=== PATIENT | male | born 1965 | race Caucasian/White ===

== ENCOUNTER 2017-03-02 16:49 | Observation (INO) | payer OTHER ==
[~2017-03-02] VITALS: Ht 203.2 cm; Wt 104.0 kg
[~2017-03-02 16:49] MED LIST: ABILIFY15 MG NG; ZOLOFT100 MG G-TUBE
[2017-03-02 17:35] LABS: HEMATOCRIT 48.6 % (38.0-50.0); MCH 30.4 PG (29.0-34.0); MCHC 33.1 G/DL (30.0-36.0); MCV 91.9 FL (86-99); MEAN PLAT.VOLUME 9.4 uM^3 (9.0-12.4); PLATELET COUNT 230 K/uL (156-360); RBC DIS.WIDTH-CV 12.7 % (11.8-14.6); RBC DIS.WIDTH-SD 43.1 % (39-53); RED BLOOD COUNT 5.29 M/uL (4.00-5.50); WHITE BLOOD COUNT 9.9 K/uL (4.1-10.2)
[2017-03-02 17:43] LABS: CHLORIDE 110 mEq/L (99-109); POTASSIUM 3.7 mEq/L (3.7-5.4); SODIUM 143 mEq/L (136-147)
[2017-03-02 17:45] LABS: GLUCOSE 115 mg/dL (70-99)
[2017-03-02 17:46] LABS: ANION GAP 8 MEQ/L (2-14)
[2017-03-02 17:49] LABS: GFR ESTIMATE (CALCULATED) > 59 mL/min/
[2017-03-02 17:50] LABS: UREA NITROGEN (BUN) 11 mg/dL (9-23)
[2017-03-02] MEDS ORDERED: PROAIR HFA8.5 GM IH (20:56)
[2017-03-02 22:36] VITALS: BP 138/85
[2017-03-02 23:19] LABS: SERUM ETHYL ALCOHOL < 10 mg/dL
[2017-03-03 01:41] LABS: HDL CHOLESTEROL 33 MG/DL (Desirable>=40); LDL CHOLESTEROL 99 mg/dL (Desirable<100); NON-HDL CHOLESTEROL 140 mg/dL (Desirable<160); TOTAL CHOLESTEROL 173 mg/dL (Desirable<200); TRIGLYCERIDES 205 MG/DL (Normal: <150)
[2017-03-03 04:33] VITALS: BP 141/88
[2017-03-03 07:10] LABS: Estimated Average Glucose 114 mg/dL (70-123); HEMOGLOBIN A1c (GLYCOHEMOGLOB) 5.6 % HGB (Below 5.7)
[2017-03-03 08:30] VITALS: BP 139/87
[2017-03-03] MEDS ORDERED: AMLODIPINE BESYL5 MG PO (13:04)
== END 2017-03-03 17:03 | disposition home or self-care (01) ==
LOC: EME 16:49 → EDOF 21:06 → 5WEST 22:19
PROVIDERS: Physician Assistant; Physician Assistant Medical
DX: M48.06 Spinal stenosis, lumbar region (principal); M51.36 Other intervertebral disc degeneration, lumbar region; R20.2 Paresthesia of skin; J45.909 Unspecified asthma, uncomplicated; I10 Essential (primary) hypertension; F31.9 Bipolar disorder, unspecified; F17.290 Nicotine dependence, other tobacco product, uncomplicated; E66.9 Obesity, unspecified; Z68.32 Body mass index [BMI] 32.0-32.9, adult
CPT/HCPCS: 70450; 70551; 72148; 80048; 80061; 80306 90; 81003; 83036; 85027; 93005; 94640; 99202; 99281; 99285; G0378; G0480; J2060

== ENCOUNTER 2017-04-15 15:38 | Emergency (ER) | payer OTHER ==
[~2017-04-15] VITALS: Ht 177.8 cm; Wt 102.0 kg
[~2017-04-15 15:38] MED LIST changes: +AMLODIPINE BESYL5 MG PO; +PROAIR HFA8.5 GM IH
[2017-04-15] MEDS ORDERED: ULTRAM50 MG PO (18:30)
[2017-04-15 18:43] VITALS: BP 139/92
== END 2017-04-15 19:09 | disposition home or self-care (01) ==
LOC: EME 15:38
DX: M25.461 Effusion, right knee (principal); J45.909 Unspecified asthma, uncomplicated; I10 Essential (primary) hypertension; Z87.442 Personal history of urinary calculi; Z72.0 Tobacco use
CPT/HCPCS: 73564; 93971; 99281; 99284

== ENCOUNTER 2017-06-04 19:51 | Observation (INO) | payer OTHER ==
[~2017-06-04] VITALS: Ht 177.8 cm; Wt 99.4 kg
[~2017-06-04 19:51] MED LIST changes: +ULTRAM50 MG PO
[2017-06-04 20:44] LABS: EOSINOPHIL (%) 1.1 % (0-5); EOSINOPHIL COUNT 0.1 K/uL (0-0.3); HEMATOCRIT 40.9 % (38.0-50.0); IMMATURE GRANULOCYTE (%) 0.6 % (0.0-0.7); IMMATURE GRANULOCYTE COUNT 0.1 K/uL; INSTRUMENT ABS NEUTROPHIL CT 9.5 K/uL; LYMPHOCYTE COUNT 2.1 K/uL (1.0-2.8); MCH 30.4 PG (29.0-34.0); MCHC 33.3 G/DL (30.0-36.0); MCV 91.5 FL (86-99); MEAN PLAT.VOLUME 9.2 uM^3 (9.0-12.4); MONOCYTE (%) 6.2 % (3-12); MONOCYTE COUNT 0.8 K/uL (0-0.8); NEUTROPHIL (%) 75.5 % (45-76); NEUTROPHIL COUNT 9.5 K/uL (1.8-6.4); PLATELET COUNT 211 K/uL (156-360); RBC DIS.WIDTH-CV 12.8 % (11.8-14.6); RBC DIS.WIDTH-SD 42.9 % (39-53); RED BLOOD COUNT 4.47 M/uL (4.00-5.50); WHITE BLOOD COUNT 12.6 K/uL (4.1-10.2)
[2017-06-04 20:58] LABS: CHLORIDE 108 mEq/L (99-109); POTASSIUM 3.8 mEq/L (3.7-5.4); SODIUM 141 mEq/L (136-147)
[2017-06-04 21:00] LABS: GLUCOSE 156 mg/dL (70-99)
[2017-06-04 21:01] LABS: ANION GAP 14 MEQ/L (2-14)
[2017-06-04 21:02] LABS: TOTAL BILIRUBIN 0.4 mg/dL (0.0-1.0)
[2017-06-04 21:03] LABS: SERUM ETHYL ALCOHOL < 10 mg/dL
[2017-06-04 21:04] LABS: ALKALINE PHOSPHATASE 53 IU/L (3-129); GFR ESTIMATE (CALCULATED) 45 mL/min/
[2017-06-04 21:05] LABS: UREA NITROGEN (BUN) 17 mg/dL (9-23)
[2017-06-04 21:07] LABS: CREATINE KINASE 119 IU/L (1-294); TOTAL CK 119 IU/L (1-294); TROP-I INTERPRETATION NEGATIVE; TROPONIN-I < 0.01 ng/mL (0.0-0.30)
[2017-06-04 21:12] LABS: CK-MB 0.8 ng/mL (0.0-4.9)
[2017-06-04 21:42] LABS: ADD MIUA? YES; BILIRUBIN NEGATIVE; BLOOD NEGATIVE; COLOR YELLOW ((YELLOW)); GLUCOSE (STRIP) NEGATIVE; KETONES NEGATIVE; LEUKOCYTES NEGATIVE; NITRITE NEGATIVE; PROTEIN (STRIP) 100; UROBILINOGEN 0.2 MG/DL (0.2-1.0)
[2017-06-04 21:56] LABS: AMPHETAMINE NEGATIVE (500 ng/mL); BARBITURATES NEGATIVE (200 ng/mL); BENZODIAZEPINES NEGATIVE (150 ng/mL); COCAINE PRESUMPTIVE POSITIVE (150 ng/mL); METHADONE NEGATIVE (200 ng/mL); METHAMPHETAMINE NEGATIVE (500 ng/mL); OPIATES (MORPHINE) NEGATIVE (100 ng/mL); OXYCODONE NEGATIVE (100 ng/mL); PHENCYCLIDINE NEGATIVE (25 ng/mL); PROPOXYPHENE NEGATIVE (300 ng/mL); THC CANNABINOIDS PRESUMPTIVE POSITIVE (50 ng/mL); TRICYCLIC ANTIDEPRESSANTS NEGATIVE (300 ng/mL)
[2017-06-04 21:57] LABS: ADD MEDTOX COMMENT Y; INTERNAL CONTROLS VALID? YES
[2017-06-04 22:13] LABS: BACTERIA RARE /HPF; EPITHELIAL CELLS RARE /HPF; MUCUS TRACE /LPF; RED BLOOD CELLS 0-5 /HPF (0-5); UCUL ADDED? NO; WHITE BLOOD CELLS 0-5 /HPF (0-5)
[2017-06-04] MEDS ORDERED: AMLODIPINE BESY10 MG PO (23:35)
[2017-06-04] MEDS ORDERED: LOSARTAN POTAS100 MG PO (23:36)
[2017-06-04] MEDS ORDERED: BREO ELLIPTA I1 EACH IH (23:36)
[2017-06-04] MEDS ORDERED: PREVACID30 MG PO (23:36)
[2017-06-04] MEDS ORDERED: GLUCOSAMINE-CH1 EA14 PO (23:37)
[2017-06-05 01:30] VITALS: BP 110/63
[2017-06-05 03:06] LABS: TROP-I INTERPRETATION NEGATIVE; TROPONIN-I < 0.01 ng/mL (0.0-0.30)
[2017-06-05 04:00] VITALS: BP 109/65
[2017-06-05 08:00] VITALS: BP 110/64
[2017-06-05 09:25] LABS: EOSINOPHIL COUNT 0.2 K/uL (0-0.3); HEMATOCRIT 39.1 % (38.0-50.0); IMMATURE GRANULOCYTE (%) 0.4 % (0.0-0.7); INSTRUMENT ABS NEUTROPHIL CT 6.8 K/uL; LYMPHOCYTE COUNT 2.4 K/uL (1.0-2.8); MCH 30.2 PG (29.0-34.0); MCV 91.6 FL (86-99); MEAN PLAT.VOLUME 9.1 uM^3 (9.0-12.4); MONOCYTE (%) 6.2 % (3-12); MONOCYTE COUNT 0.6 K/uL (0-0.8); NEUTROPHIL (%) 67.5 % (45-76); NEUTROPHIL COUNT 6.8 K/uL (1.8-6.4); PLATELET COUNT 178 K/uL (156-360); RBC DIS.WIDTH-CV 12.8 % (11.8-14.6); RBC DIS.WIDTH-SD 42.7 % (39-53); RED BLOOD COUNT 4.27 M/uL (4.00-5.50); WHITE BLOOD COUNT 10.1 K/uL (4.1-10.2)
[2017-06-05 10:02] LABS: ANION GAP 5 MEQ/L (2-14); CHLORIDE 111 MEQ/L (99-109); SAMPLE HEMOLYSIS CHECK 0; SAMPLE ICTERIC CHECK 0; SAMPLE LIPEMIA CHECK 0; SODIUM 143 MEQ/L (136-147); UREA NITROGEN (BUN) 13 mg/dL (9-23)
[2017-06-05 10:06] LABS: GFR ESTIMATE (CALCULATED) > 59 mL/min/; GLUCOSE 81 mg/dL (70-99)
[2017-06-05 10:17] LABS: TROP-I INTERPRETATION NEGATIVE; TROPONIN-I < 0.01 ng/mL (0.0-0.30)
[2017-06-05 12:37] VITALS: BP 115/87
== END 2017-06-05 13:09 | disposition home or self-care (01) ==
LOC: EME → EDBD 19:51 → EME 19:51 → EDOF 06-05 00:22 → 5WEST 06-05 01:26
PROVIDERS: Emergency Medicine; Hospitalist
DX: T40.5X1A Poisoning by cocaine, accidental (unintentional), initial encounter (principal); G92 Toxic encephalopathy; N17.9 Acute kidney failure, unspecified; R00.1 Bradycardia, unspecified; I95.9 Hypotension, unspecified; R61 Generalized hyperhidrosis; I10 Essential (primary) hypertension; K21.9 Gastro-esophageal reflux disease without esophagitis; F17.210 Nicotine dependence, cigarettes, uncomplicated; Z82.49 Family history of ischemic heart disease and other diseases of the circulatory system; Z83.3 Family history of diabetes mellitus; Z80.9 Family history of malignant neoplasm, unspecified
CPT/HCPCS: 70450; 71010; 80048; 80053; 81003; 82550; 82553; 84484; 84999; 85025; 93005; 94640; 94760; 94799; 99202; 99281; 99285; G0378; G0480; J1200; J2270; J7030; S0028

== ENCOUNTER 2017-06-05 22:24 | Emergency (ER) | payer OTHER ==
[~2017-06-05] VITALS: Ht 180.3 cm; Wt 99.4 kg
[~2017-06-05 22:24] MED LIST changes: +AMLODIPINE BESY10 MG PO; +BREO ELLIPTA I1 EACH IH; +GLUCOSAMINE-CH1 EA14 PO; +LOSARTAN POTAS100 MG PO; +PREVACID30 MG PO
[2017-06-05 22:59] LABS: HEMATOCRIT 38.2 % (38.0-50.0); MCH 30.8 PG (29.0-34.0); MCHC 33.8 G/DL (30.0-36.0); MCV 91.2 FL (86-99); MEAN PLAT.VOLUME 9.3 uM^3 (9.0-12.4); PLATELET COUNT 178 K/uL (156-360); RBC DIS.WIDTH-CV 12.6 % (11.8-14.6); RBC DIS.WIDTH-SD 41.7 % (39-53); RED BLOOD COUNT 4.19 M/uL (4.00-5.50); WHITE BLOOD COUNT 9.2 K/uL (4.1-10.2)
[2017-06-05 23:08] LABS: PROTHROMBIN TIME 10.1 (9.2-11.2); PTT 26.7 (25-32)
[2017-06-05 23:10] LABS: CHLORIDE 107 mEq/L (99-109); POTASSIUM 3.4 mEq/L (3.7-5.4); SODIUM 141 mEq/L (136-147)
[2017-06-05 23:12] LABS: GLUCOSE 149 mg/dL (70-99)
[2017-06-05 23:13] LABS: ANION GAP 12 MEQ/L (2-14)
[2017-06-05 23:15] LABS: GFR ESTIMATE (CALCULATED) > 59 mL/min/
[2017-06-05 23:16] LABS: UREA NITROGEN (BUN) 12 mg/dL (9-23)
[2017-06-05 23:19] LABS: SERUM ETHYL ALCOHOL < 10 mg/dL; TROP-I INTERPRETATION NEGATIVE; TROPONIN-I < 0.01 ng/mL (0.0-0.30)
[2017-06-06 00:17] VITALS: BP 99/63
== END 2017-06-06 00:17 | disposition home or self-care (01) ==
LOC: EME → EDBD 22:24 → EME 06-06 00:17
PROVIDERS: Emergency Medicine
DX: R07.9 Chest pain, unspecified (principal); K21.9 Gastro-esophageal reflux disease without esophagitis; J45.909 Unspecified asthma, uncomplicated; I10 Essential (primary) hypertension; Z87.442 Personal history of urinary calculi; F17.200 Nicotine dependence, unspecified, uncomplicated
CPT/HCPCS: 71020; 80048 91; 84484; 85027; 85610; 85730; 93005; 99281; 99284; G0480; J1200; J7030

== ENCOUNTER → 2018-03-07 | Outpatient (CLI) | payer MEDICARE, OTHER | END | disposition home or self-care (01) | LOC: CDC 11:11 | DX: Z01.810 Encounter for preprocedural cardiovascular examination (principal); M79.641 Pain in right hand; G56.01 Carpal tunnel syndrome, right upper limb | CPT/HCPCS: 93000 ==